=== PATIENT | female | born 1995 | race Two or more races ===

== ENCOUNTER 2017-05-23 21:05 | Emergency (ER) | payer BC ==
--- NOTE | ~2017-05-23 | ER ---
PATIENT'S NAME: GLYNN [facility] AGE: 21 Y [address] ROOM: [place] [address] LOCATION: [facility] ADMIT DATE: 05/23/2017 ER/Outpatient Report DISCHARGE DATE: 05/23/2017 FAMILY PHYSICIAN: PHYSICIAN, NO ATTENDING PHYSICIAN: [place] Vargas Admission date and time documented on medical record. I saw the patient at 2115 hours. CHIEF COMPLAINT: Ground-level fall. HISTORY OF PRESENT ILLNESS: This is a 21-year-old female who was caring her child tripped over a brick, landing on cement. She has an abrasion to her right elbow and knee. She has pain in her left shoulder, left elbow. The patient did not hit her head or lose conscious. No head pain, eyes, ears, nose, throat, neck, or spine pain. No chest pain or shortness of breath. No abdominal pain, nausea, vomiting, diarrhea, urinary frequency, urgency, or dysuria. No incontinence. No history of neuro changes, psych issues, or endocrine problems. HOME MEDICATION: control pill. ALLERGIES: NONE. SOCIAL HISTORY: Nonsmoker and nondrinker. SIGNIFICANT PAST MEDICAL HISTORY: Asthma. OPERATIONS: Knee surgery. REVIEW OF SYSTEMS: All systems reviewed by me are negative with the exception of those discussed in the history of present illness. PHYSICAL EXAMINATION: VITAL SIGNS: Temperature 99.3, tympanic; pulse 114, regular; respirations 18; blood pressure 124/73; and O2 saturation on room air is 95%. HEAD: Normocephalic. No abrasion, contusion, laceration, swelling of the scalp or face. PATIENT'S NAME: GLYNN [facility] AGE: 21 Y [address] ROOM: [place] [address] LOCATION: [facility] ADMIT DATE: 05/23/2017 ER/Outpatient Report DISCHARGE DATE: 05/23/2017 FAMILY PHYSICIAN: PHYSICIAN, NO ATTENDING PHYSICIAN: [place] Vargas EYES, EARS, NOSE, THROAT: Clear. NECK: Negative. SPINE: Negative. LUNGS: Clear. HEART: Regular. ABDOMEN: Soft and nontender. Good bowel tones. EXTREMITIES: The patient has abrasion and a little bit of swelling to the right tip of her elbow and over the anterior surface of the right knee. Range of motion full. The patient has tenderness in the left shoulder with decreased range of motion, and also tenderness in the left elbow with decreased range of motion. No deformities noted. NEUROVASCULAR: Intact. Pulse intact. No open wounds. IMAGING DATA: X-ray of the left shoulder showed no fracture or dislocation, separation. Clavicles intact. X-ray of the left elbow shows no fracture. There is an anterior fat pad. No dislocation. We will review all plain films with the radiologist. IMPRESSION: Ground level fall after tripping over brick with left elbow, left shoulder injury and pain. PLAN: The patient was placed in a left envelope arm sling. Discharged home. Observation. Activity as tolerated. Ice to sore areas intermittently as needed for 72 hours. [place] 5/325 as needed for pain #16, Aleve 2 orally 2 times a day with food x7 to 10 days. Follow up with personal physician in 6 to 7 days or sooner if needed. Discussion with the patient concerning my findings and recommendations. She understands. MD RUCHI BOND/modl /[id number] d: 05/24/17 0202 t: 05/26/17 0613, OUTPATIENT REPORT
[~2017-05-23 21:05] MED LIST: ACETAMINOPHEN500 M1; FEOSOL325 MG PO; MOTRIN800 MG PO; PERCOCET 5-3251 EACH PO; PRENATAL 1+1)(P1 TAB PO
== END 2017-05-23 22:11 | disposition disaster alternative care site (69) ==
LOC: GACC 21:05
DX: S50.311A Abrasion of right elbow, initial encounter (principal); S80.211A Abrasion, right knee, initial encounter; M25.512 Pain in left shoulder; M25.522 Pain in left elbow; J45.909 Unspecified asthma, uncomplicated; Z98.890 Other specified postprocedural states; W01.0XXA Fall on same level from slipping, tripping and stumbling without subsequent striking against object, initial encounter